=== PATIENT | female | born 1950 | race Two or more races ===

== ENCOUNTER → 2021-10-03 | Outpatient (CLI) | payer MEDICARE ==
--- NOTE | 2021-10-03 13:08 | REP ---
INDICATION: DISPL COMMNT FX SHAFT OF HUMER, R ARM, 7THD. COMPARISON: None. TECHNIQUE: Axial CT right humerus with sagittal and coronal reconstruction images. FINDINGS: There is a fracture of the proximal humeral shaft with medial displacement. Bridging calcific callus is seen laterally, bridging the fracture fragments. Medially there is healing callus formation which does not bridge the fracture fragments. There could be fibrous union. No other osseous abnormality is seen. The surrounding soft tissue structures are grossly unremarkable. IMPRESSION: Fracture proximal humeral shaft with medial displacement. Calcified callus bridges the fracture fragments laterally. There is no bridging calcified callus medially, although there could be fibrous union. <Electronically signed by Jorge Luis Bender > 10/03/21 0733
== END ==
LOC: M PLAIMG 10:02
PROVIDERS: ATTEND Physician Assistant
DX: S42.351D Displaced comminuted fracture of shaft of humerus, right arm, subsequent encounter for fracture with routine healing (principal)

== ENCOUNTER 2024-10-01 21:12 | Emergency (ER) | payer MEDICARE ==
[~2024-10-01] VITALS: Ht 154.9 cm; Wt 88.6 kg
[2024-10-01 21:14] VITALS: TEMP 98.5
[2024-10-01] MEDS ORDERED: CETI-24 PO (21:28)
[2024-10-01] MEDS ORDERED: METF500T13 PO (21:28)
[2024-10-01] MEDS ORDERED: CITA20TA7 PO (21:28)
[2024-10-01] MEDS ORDERED: AMLO1TAB24 PO (21:28)
[2024-10-01] MEDS ORDERED: LISI20TA33 PO (21:28)
[2024-10-01] MEDS ORDERED: ATOR1TAB19 PO (21:28)
[2024-10-02 00:27] LABS: ALBUMIN 3.4 G/DL (3.2-5.2); BILIRUBIN,DIRECT 0.4 MG/DL (<0.4); BILIRUBIN,TOTAL 1.1 MG/DL (0.3-1.2); CALCIUM LEVEL 10.1 MG/DL (8.3-10.6); CREATININE FOR GFR 1.02 MG/DL (0.55-1.30); GLOMERULAR FILTRATION RATE 56.4 (>39); POTASSIUM SERUM 4.8 MMOL/L (3.5-5.1); TOTAL PROTEIN 6.1 G/DL (5.7-8.2)
[2024-10-02 00:31] LABS: BASO % 0.4 % (0.0-1.0); EOS # 0.3 10^3/uL (0.0-0.5); EOS % 2.7 % (0.0-3.0); HEMATOCRIT 39.6 % (36.0-47.0); HEMOGLOBIN 12.9 g/dl (12.0-15.5); LYMPH # 2.7 10^3/uL (1.5-5.0); LYMPH % 28.6 % (24.0-44.0); MEAN CORPUSCULAR HEMOGLOBIN 29.7 pg (27.0-33.0); MEAN CORPUSCULAR HGB CONC 32.6 g/dl (32.0-36.5); MONO # 1.2 10^3/uL (0.0-0.8); MONO % 12.7 % (2.0-8.0); NEUTROPHILS # 5.2 10^3/uL (1.5-8.5); NEUTROPHILS % 55.2 % (36.0-66.0); PLATELET COUNT, AUTOMATED 234 10^3/uL (150-450); RED BLOOD COUNT 4.35 10^6/uL (4.00-5.40); WHITE BLOOD COUNT 9.4 10^3/uL (4.0-10.0)
[2024-10-02] MEDS: FLEET OIL RETENTION ENEMA PR ONE (01:21)
[2024-10-02 03:13] VITALS: BP 156/75; O2SAT 97
[2024-10-02] MEDS ORDERED: RA M1SOL2 PO (04:49)
[2024-10-02] MEDS ORDERED: DULC10SU2 PR (04:49)
== END 2024-10-02 04:54 | disposition home or self-care (01) ==
LOC: M ED 21:12
DX: K59.00 Constipation, unspecified (principal); E11.9 Type 2 diabetes mellitus without complications; I10 Essential (primary) hypertension; E78.5 Hyperlipidemia, unspecified; M48.061 Spinal stenosis, lumbar region without neurogenic claudication; M99.73 Connective tissue and disc stenosis of intervertebral foramina of lumbar region

== ENCOUNTER → 2024-10-28 | Outpatient (CLI) | payer MEDICARE ==
[~2024-10-28] MED LIST: AMLO1TAB24 PO; ATOR1TAB19 PO; CETI-24 PO; CITA20TA7 PO; DULC10SU2 PR; LISI20TA33 PO; METF500T13 PO; RA M1SOL2 PO
== END ==
LOC: M PLAIMG 10:04
PROVIDERS: ATTEND Otolaryngology
DX: J32.0 Chronic maxillary sinusitis (principal); J34.89 Other specified disorders of nose and nasal sinuses; J34.2 Deviated nasal septum